=== PATIENT | male | born 1950 | race Caucasian/White ===

== ENCOUNTER 2022-02-16 20:04 | Emergency (ER) | payer MEDICARE, OTHER ==
[2022-02-16] MEDS ORDERED: Tenecteplase 50 MG Kit ONE (20:12)
[2022-02-16] MEDS: Sodium Chloride 0.9% 10 ML Syringe FLUSH PRN ×2 (20:32→22:29)
[2022-02-16] MEDS ORDERED: Sodium Chloride 0.9% 500 ML IV ONE (20:37)
[2022-02-16] MEDS ORDERED: Nitroglycerin 0.3 MG Tab.SL SL PRN (20:51)
[2022-02-16] MEDS ORDERED: Nitroglycerin 0.4 MG Tab.SL ONE (20:52)
[2022-02-16] MEDS ORDERED: Aspirin 81 MG Tab.Chew PO ONE (21:03)
[2022-02-16] MEDS: Nitroglycerin 0.4 MG Tab.SL SL PRN ×2 (21:03→21:14)
[2022-02-16] MEDS ORDERED: Heparin Sodium 5,000 Units/ML Vial IVPUSH ONE ×2 (21:03→23:27)
[2022-02-16] MEDS ORDERED: Piperacillin/Tazobactam 4.5 GM in Sodium Chloride 0.9% 100 ML IV ONE (21:11)
[2022-02-16] MEDS ORDERED: Heparin Sodium/D5W 25,000 UNITS/500 ML BAG IV SCH ×2 (21:15→23:30)
[2022-02-16] MEDS ORDERED: Sodium Chloride 0.9% 10 ML SDV FLUSH ONE (21:41)
[2022-02-16] MEDS ORDERED: Iopamidol 755 Mg/ML 100 ML Bottle IVPUSH ONE (21:41)
[2022-02-16] MEDS ORDERED: Sodium Chloride 0.9% 100 ML IV SCH (21:45)
[2022-02-16] MEDS ORDERED: Heparin Sodium 5,000 Units/ML Vial ONE (23:31)
== END 2022-02-16 23:42 ==
LOC: JD.ED 20:04
DX: I26.99 Other pulmonary embolism without acute cor pulmonale (principal); R09.02 Hypoxemia; I11.0 Hypertensive heart disease with heart failure; I50.9 Heart failure, unspecified; E11.9 Type 2 diabetes mellitus without complications; E66.9 Obesity, unspecified; Z68.34 Body mass index [BMI] 34.0-34.9, adult; Z87.891 Personal history of nicotine dependence; Z79.899 Other long term (current) drug therapy; Z20.822 Contact with and (suspected) exposure to COVID-19
CPT/HCPCS: 36415; 71045; 71275; 80053; 83605; 83735; 83880; 84484; 85025; 85379; 85610; 86140; 87040; 87635; 93005; 96365; 96366; 96368; 99285; J1644; J2543; J3490; J7030; Q9967; A9270-GY; U0002